=== PATIENT | male | born 2000 | race Two or more races ===

== ENCOUNTER 2024-12-01 21:46 | Emergency (ER) | payer MEDICAID, SELFPAY ==
[2024-12-01 22:00] VITALS: BP 134/88; PULSE 96; RESP 20; TEMP 36.9; O2SAT 97
--- NOTE | 2024-12-01 22:13 | PD.EDRME ---
Rapid Medical Screening Exam RME Arrival date/time: 12/01/24 21:46 24-year-old male reports with the statement I want to . He also admits to wanting to harm others Chief Complaint: Wound/Laceration Time Seen by Provider: 12/01/24 22:08 Vital signs: Vital Signs Temperature 98.4 F 12/01/24 22:00 Pulse Rate 96 12/01/24 22:00 Respiratory Rate 20 12/01/24 22:00 Blood Pressure 134/88 H 12/01/24 22:00 Pulse Oximetry (%) 97 12/01/24 22:00 Oxygen Delivery Method Room Air 12/01/24 22:00
--- NOTE | 2024-12-01 22:30 | PC.NURSE ---
Pt placed in ED rm 18, with ligatures removed. Pt was checked by private security guard, Ligia. Pt placed in hospital gown and clothes placed in locker #6. Pt was cooperative and followed commands appropriately. U/A obtained and will send to lab. Pt provided with blanket and pillow. Vital signs obtained. 1:1 sitter present.
[2024-12-01 22:45] VITALS: BP 125/80; PULSE 110; RESP 20; TEMP 36.8; O2SAT 97
[2024-12-01 23:02] LABS: Alcohol, Blood Medical < 3.0 mg/dL (0-10.0)
--- NOTE | 2024-12-01 23:24 | EDNOTE_ITS ---
ED Psych RME/HPI General Chief Complaint: Wound/Laceration Stated Complaint: LACERATIONS TO ARMS Time Seen by Provider: 12/01/24 22:08 Arrival date/time: 12/01/24 21:46 RME / HPI RME / HPI Narrative: 12/01/24 21:46 24-year-old male reports with the statement I want to . He also admits to wanting to harm others -------- Dr. Quiles?s Main ED Evaluation: 24yo male presents to the ED for SI. Patient endorsed to nursing staff on arrival I want to . He does have a history of self harm. Also states he wants to inflict harm to others. Denies any hallucinations. No known allergies. Related Data Allergies Allergy/AdvReac Type Severity Reaction Status Date / Time No Known Allergies Allergy Verified 12/01/24 21:48 Review of Systems Review of Systems Systems Reviewed: All systems reviewed, normal except as documented Past Medical History Social History SMOKING STATUS: Never smoker ED Exam Narrative Physical exam: GENERAL APPEARANCE: alert and oriented x 4, well-developed, well-nourished, no acute distress VITALS: All vitals were reviewed and the pulse ox is 97% on room air, which is normal according to my interpretation. HEENT: normocephalic, atraumatic NECK: supple LUNGS: no respiratory distress, normal effort HEART: good peripheral perfusion ABDOMEN: non distended EXTREMITIES: atraumatic NEUROLOGIC: awake; alert and oriented x4; cranial nerves II-XII grossly intact PSYCHIATRIC: appropriate mood and affect SKIN: warm, dry, normal color; no rashes Course Course Course Narrative: 2343: Patient is medically clear for crisis evaluation. The patient was placed in ED observation care at 12/01/24 at 2343 hours. The patient was placed in ED observation care because of pending psychiatric evaluation. The patients past medical history, social history, and family history were reviewed. The plan of care will include serial examinations. 0600: Care signed out to Dr. Nicole (emergency physician). Past medical, surgical, social and family history reviewed. Vitals and home medications reviewed. Results and treatment plan discussed. They will assume the care of the patient at this time and will follow the patient, pending crisis evaluation. At this time, observation has ended. Quality Measures none Orders Category Date Time Status Alcohol, Blood Medical Stat Lab 12/01/24 22:26 Completed Drug Screen,Urine Stat Lab 12/01/24 23:01 Completed Vital Signs Vital signs: Vital Signs Temperature 98.4 F 12/01/24 22:00 Pulse Rate 96 12/01/24 22:00 Respiratory Rate 20 12/01/24 22:00 Blood Pressure 134/88 H 12/01/24 22:00 Pulse Oximetry (%) 97 12/01/24 22:00 Oxygen Delivery Method Room Air 12/01/24 22:00 Psych MDM Narrative MDM Narrative:: Scribe Attestation: 12/01/24 - Jazz Lieberman am scribing for and in the presence of Dr. Quiles. Patient data External records reviewed:: [facility] previous records (Per chart review, patient has no previous ED visits or admissions to this facility.) Clinical information provided by:: patient Social determinants that could affect healthcare access:: mental health Patient has the following chronic illnesses:: none How is presenting disease/condition affected by chronic disease/condition?: no chronic disease Evaluation data The following diagnostics were reviewed and interpreted by me:: lab results Lab and/or radiology exams considered but not ordered:: none Interpretation Summary: Blood alcohol is negative, UDS is positive for marijuana and methamphetamines, according to my interpretation. Medications / Prescriptions Medications or Prescriptions considered but not ordered:: none Medication administrations:: none Consultations Consultation(s) initiated? (list below): No Diagnosis Psych Differential Diagnosis: suicidal ideation, depression and other (HI) Most likely diagnosis given after review of the tests above:: see below Admission Indicated Admission indicated?: not indicated Admission Request Was there a request for admission?: No Disposition Plan Disposition Plan: other (specify) (Signed out to Dr. Nicole at 0600 pending crisis evaluation.) Discharge Plan Prescriptions/Referrals Referrals: Zachariah Moreau MD [Primary Care Provider] - In 1 week Problem List Clinical Impression: Suicidal ideation Patient/Caregiver Discharge Instructions Print Language: Faroese
[2024-12-01 23:33] LABS: Amphetamine/Methamp Scrn,U Positive (Negative); Barbiturate Screen,Urine Negative (Negative); Benzodiazepines Screen,Urine Negative (Negative); Benzoylecgonine Screen, Ur Negative (Negative); Fentanyl Screen,Urine Negative (Negative); Opiate Screen,Urine Negative (Negative); THC Screen,Urine Positive (Negative)
[2024-12-02] VITALS (8 sets, daily range): BP systolic 106–150; BP diastolic 55–84; PULSE 72–94; RESP 15–20; TEMP 36.4–37.3; O2SAT 96–99
--- NOTE | 2024-12-02 | PC.NURSE ---
Pt voluntary presents to ED D/T SI pt states he was brought in by mother when she noted pt had been cutting himself in attempt to commit suicide . Pt presents with four fresh superficial lacerations to his left upper forearm and multiple scared laceration from prior self inflicted cuts. Pt states he is having suicidal thoughts with a plan. PT cooperative to treatment at this time. 1:[address]
[2024-12-02] MEDS: DIPHTH,PERTUSS(ACELL),TET VAC 0.5 ML SYR IMi (06:31)
[2024-12-02] MEDS: BACITRACIN OINT 1 GM PACKET TOP (06:31)
[2024-12-02] MEDS: cephALEXin 250 MG CAPSULE 1000 MG PO (06:35)
[2024-12-02 07:12] LABS: Basophils # (Auto) 0.1 Thou/mm3 (0.0-0.2); Basophils % (Auto) 0 % (0-2.5); Eosinophils # (Auto) 0.2 Thou/mm3 (0.0-0.5); Eosinophils % (Auto) 1 % (0-10); Hematocrit 40.6 % (41.0-53.0); Hemoglobin 14.1 g/dL (13.5-16.0); Immature Granulocytes % (Auto) 1 % (0-0); Immature Granulocytes Auto 0.11 Thou/mm3 (0.00-0.00); Lymphocytes # (Auto) 2.4 Thou/mm3 (1.0-4.8); Lymphocytes % (Auto) 15 % (10-50); Mean Corpuscular HGB Conc 34.7 g/dl (31.0-37.0); Mean Corpuscular Hemoglobin 28.4 pg (25.0-35.0); Mean Corpuscular Volume 82 fL (80-100); Monocytes # (Auto) 1.6 Thou/mm3 (0.0-0.8); Monocytes % (Auto) 10 % (0-12); Neutrophils # (Auto) 11.6 Thou/mm3 (1.8-7.7); Neutrophils % (Auto) 73 % (37-80); Nucleated Red Blood Cell % 0 /100 WBC (0); Platelet Count 226 Thou/mm3 (140-440); RDW Standard Deviation 39.5 fL (35.1-43.9); Red Blood Count 4.96 Miln/mm3 (4.50-5.90)
--- NOTE | 2024-12-02 08:00 | PC.NURSE ---
breakfast tray provided.
[2024-12-02 08:14] LABS: Acetaminophen < 2.0 mcg/mL (10.0-20.0); Alanine Aminotransferase 61 U/L (10-49); Albumin, Serum 4.4 gm/dL (3.5-5.0); Albumin/Globulin Ratio 1.6 (1.2-2.2); Alkaline Phosphatase 77 U/L (46-116); Anion Gap 10 (7-16); Aspartate Amino Transferase 72 U/L (0-34); BUN/Creatinine Ratio 11 Ratio (12-20); Bilirubin,Total 1.3 mg/dL (0.3-1.2); Blood Urea Nitrogen 12 mg/dL (9-23); Calcium 9.1 mg/dL (8.3-10.6); Calcium (Corrected) 9.1 mg/dL (8.5-10.1); Carbon Dioxide 27.1 mMol/L (20.0-31.0); Chloride 99 mMol/L (98-107); Creatinine (Component) 1.1 mg/dL (0.6-1.3); Globulin 2.7 gm/dL (2.3-3.5); Glucose 98 mg/dL (74-106); Magnesium 2.4 mg/dL (1.6-2.6); Osmolality,Calculated 271 (275-295); Potassium 3.7 mMol/L (3.4-5.1); Salicylate < 3.0 mg/dL; Sodium 136 mMol/L (136-145); Thyroid Stimulating Hormone 0.64 uIU/mL (0.55-4.78); Total Protein 7.1 gm/dL (5.7-8.2); eGFR > 60 See Note
--- NOTE | 2024-12-02 12:00 | PC.NURSE ---
LUNCH TRAY PROVIDED.
--- NOTE | 2024-12-02 16:33 | PD.EDADDENDU ---
Emergency Room Addendum Addendum Narrative: I took over the care from Dr. BROWN at 6 AM on 12/02/2024, see her notes for complete H&P and ED course. Patient asked me to evaluate his swollen feet for the past few days with erythema. On exam, both feet are erythematous with edema and calor and soft tissue tenderness. I reviewed all diagnostic test results. At this point, diagnoses include substance abuse, multiple skin abrasions, resolved SI due to drugs, cellulitis of both feet. Treatment here included wound care with topical ABX, Tdap, and Keflex. His mental status returned to baseline and he remained stable. After evaluation, our ED long term acute care registered nurse arranged inpatient addiction treatment at [facility]. Based on my best medical judgment, made decision no further evaluation or treatment indicated at this time. Patient understands and agrees to the discharge instructions customized and printed, see below. Discharge Instructions from Dr. Nicole: 1. After evaluation by our ED long term acute care registered nurse, you are being discharged to [facility] (inpatient addiction treatment center). 2. You don't meet the criteria for emergency half-way in psychiatric unit against your will.? Because you currently have no thoughts of hurting yourself or others.? And there are no signs of psychosis (loss of touch with reality) which can potentially be harmful to you and others. 3. Wound care of your multiple skin abrasions as instructed in the attached handout. 4. Take Keflex as prescribed for your bilateral foot cellulitis. To help the healing process, elevate your feet/ankles above your waist level when sitting or resting or sleeping. 5. See a private doctor on 12/04/2024 for recheck and further care, to make sure you are healing without any complications. 6. Seek immediate medical care (you can call 911 any time) with fever, spreading redness from a wound, thoughts of hurting yourself or with any concerns. Ko Nicole MD
--- NOTE | 2024-12-02 16:50 | PC.NURSE ---
pt cleared by social security specialist for d/c.
--- NOTE | 2024-12-02 17:03 | PC.SS ---
Addendum entered by IMANI Henriquez 12/02/24 17:08: JAISON SHAH 1730. Updated bed side nurse and Angel at the [facility]. [phone]. Original Note: ASW met with the patient [id number] for mental health evaluation. ASW introduced self, role and reason for contact. The patient was informed of the limits of confidentiality. The patient verbalized understanding. The patient appeared alert and oriented to self, place and situation. The patient presented with an organized thought process and was able to engage in the assessment. No signs of delusion or paranoia observed. Patient was asked about engaging in eye contact during the assessment. The patient reports he was brought into the ED yesterday as he needed to be medically cleared and assessed for SI before enrolling into [facility], for substance use. 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 The patient denies attempting to end his life. The patient informs he did this ?to feel better?. The patient was assessed for SI and HI. The patient denied both. The patient also denied audio and visual hallucinations. The patient denies previous suicidal attempts of psychiatric placements. The patient denies having a mental health diagnosis or taking mental health medication. The patient reports to ?crystal meth and marijuana? use. The patient reports he uses meth every other day and THC on occasion. The patient also reports alcohol use on occasion. The patient informs he is not connected to substance use services as of yet however is to connect to the [facility] for 90-day in patient program. The patient reports his mother, Lorraine Corbin to be his support network and emergency contact. Patient reports living at [id number] [place] [address] at home living with mother and siblings. The patient reports being independent with ADL?s. The patient reports to receiving SNAP and not currently employed. The patient is willing to engage in safety plan if needed and would like to discharge to [facility] for substance use services. Patient provided verbal consent to contact his mother Lorraine and [facility] staff for collateral information. Collateral contact: ASW spoke with patient?s mother Lorraine Corbin who reported the following. Patient brought in to the ED for medical clearance. Mother reports the patient has substance use issues (meth). Mother informs the patient does not have a history of mental health diagnosis. Mother denies suicide attempts on behalf of the patient. Mother informs the patient engages in ?cutting? when under the influence of meth use. Mother reports patient to connect with [facility] inpatient program this week as he has authorization. Mother informs patient is aligned with Probation and is to follow with outpatient substance use services. Mother is agreeable to be a part of patient?s support network. ASW also spoke with Alex, at the [facility]. Alex informs patient was sent for medical clearance and assessment for self-harm. No history of mental health or suicidal ideations to Alex?s knowledge. Only medication that Alex reports patient to take is muscle relaxer medication. Alex reports the patient is eligible to discharge to their program today if able to however would need transportation arranged. Alex reports the program is a 90-day inpatient program. Alex indicated they can assist with patient following outpatient mental health services. Alex provided [facility] address to be: [address] [place], [place] [id number]. . After clinical consultation with Care Special Machine Stitcher, Aleida Suárez LCSW, decision was made that patient does not meet criteria for a [address] and could be discharged to [facility] for inpatient 90-day program. NEHEMIAS was informed patient will need to follow up with outpatient mental health services and they were agreeable in assisting the patient. PAC referral to be faxed for follow up. Angel at [facility] is aware and agreeable. [facility] transportation arranged for the patient to d/c to [facility]. Angel at [facility] was contacted and made aware to expect the patient this evening. Patient?s mother Lorraine also informed.
== END 2024-12-02 16:56 | disposition home or self-care (01) ==
PROVIDERS: Physician Assistant; Emergency Provider Emergency Medicine; PCP Family Medicine
DX: R45.851 Suicidal ideations (principal); Z91.52 Personal history of nonsuicidal self-harm; Z23 Encounter for immunization; L03.116 Cellulitis of left lower limb; L03.115 Cellulitis of right lower limb
CPT/HCPCS: 36415; 80053; 80307; 80320; 80329; 83735; 84443; 85025; 90471; 90715; 96127; 99284; A9270; G0480

== ENCOUNTER 2024-12-05 18:30 | Emergency (ER) | payer MEDICAID, SELFPAY ==
[2024-12-05 19:07] VITALS: BP 142/85; PULSE 126; RESP 18; TEMP 36.9; O2SAT 97; BMI 28.1
[2024-12-05] MEDS: DOXYCYCLINE 100 MG TABLET PO (20:10)
[2024-12-05 20:14] VITALS: BP 136/89; PULSE 89; RESP 16; TEMP 36.7; O2SAT 96
--- NOTE | 2024-12-05 21:32 | EDNOTE_ITS ---
ED Skin Abcess FB-RME/HPI General Chief complaint: Ankle/Foot Injury Stated complaint: Right foot bruising, pain X 1 week Time Seen by Provider: 12/05/24 19:17 Arrival date/time: 12/05/24 18:30 24M with history of drug/psych presents to ED with 1 week of bilateral foot (R>L) pain w/o fall/trauma. Patient was here several days ago for this for psych clearance and was prescribed Keflex for cellulitis. 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 Patient states swelling as gone down, but pain is still present. Limitations: no limitations Related Data Previous Rx's ?Medication ?Instructions ?Recorded cephalexin 500 mg capsule 500 mg PO QID 10 days #40 ca ps 12/02/24 doxycycline hyclate 100 mg tablet 100 mg PO BID 7 days #14 tabs 12/05/24 Allergies Allergy/AdvReac Type Severity Reaction Status Date / Time No Known Allergies Allergy Verified 12/05/24 18:36 Review of Systems Review of Systems Systems Reviewed: All systems reviewed, normal except as documented Constitutional Constitutional: Reports system reviewed and no additional complaints, except as documented, Denies fever(s) and Denies headache(s) ENT Ears, Nose, Mouth, and Throat: Denies disequilibrium and Denies headache(s) Cardiovascular Cardiovascular: Reports system reviewed and no additional complaints, except as documented, Denies chest pain and Denies dyspnea Respiratory Respiratory: Reports system reviewed and no additional complaints, except as documented, Denies cough and Denies dyspnea Gastrointestinal Gastrointestinal: Reports system reviewed and no additional complaints, except as documented, Denies abdominal pain, Denies nausea and Denies vomiting Integumentary/Breasts Skin/Breast: Reports as per HPI and Reports skin pain Neurologic Neurologic: Reports system reviewed and no additional complaints, except as documented, Denies confusion, Denies disequilibrium and Denies headache(s) Psychiatric Psychiatric: Denies confusion Past Medical History Past Medical History CARDIAC: Negative Congestive Heart Failure RESPIRATORY: Negative Chronic Obstructive Pulmonary Disease (COPD) GENITOURINARY: Negative Renal Disease ENDOCRINE: Negative Diabetes Mellitus Type 1 or Diabetes Mellitus Type 2 Social History SMOKING STATUS: Current every day smoker ED Exam General Limitations: Present no limitations General appearance: Present alert and in no apparent distress Head Head exam: Present atraumatic Eye Eye exam: Present normal appearance, PERRL and EOMI ENT ENT exam: Present normal exam, normal oropharynx and mucous membranes moist Neck Neck exam: Present normal inspection, full ROM and trachea midline Chest Chest inspection: Present normal inspection and symmetric chest wall rise Respiratory Respiratory exam: Present normal lung sounds bilaterally Cardiovascular Cardiovascular exam: Present regular rate, normal rhythm and normal heart sounds Abdominal Exam Abdominal exam: Present soft and normal bowel sounds Extremities Exam Extremities exam: Present full ROM Expanded Lower Extremity Exam Foot/toe exam: Present full ROM, tenderness (R>L) and erythema Back Exam Back exam: Present normal inspection and full ROM Neurological Exam Neurological exam: Present alert, oriented X3 and CN II-XII intact Psychiatric Psychiatric exam: Present normal affect and normal mood Skin Skin exam: Present warm, dry, intact and normal color Course Quality Measures none Orders Category Date Time Status Doxycycline [Vibramycin] Med 12/05/24 19:17 Discontinued 100 mg PO X1 ONE Vital Signs Vital signs: Vital Signs Temperature 98.5 F 12/05/24 19:07 Pulse Rate 126 H 12/05/24 19:07 Respiratory Rate 18 12/05/24 19:07 Blood Pressure 142/85 H 12/05/24 19:07 Pulse Oximetry (%) 97 12/05/24 19:07 Oxygen Delivery Method Room Air 12/05/24 19:07 O2 at 97% on RA and WNLs Skin / Abscess / Foreign Body MDM Narrative MDM Narrative:: 24M with history of drug/psych presents to ED with 1 week of bilateral foot (R>L) pain w/o fall/trauma. Patient was here several days ago for this for psych clearance and was prescribed Keflex for cellulitis. 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 Patient states swelling as gone down, but pain is still present. Physical exam reveals bilateral foot redness and mild swelling (R>L). Gait normal. ROM intact. Patient is afebrile, calm, and alert. Given drug history will change Keflex to doxy to cover for MRSA. Patient data External records reviewed:: [facility] previous records Clinical information provided by:: patient Social determinants that could affect healthcare access:: substance use Patient has the following chronic illnesses:: psych/drug How is presenting disease/condition affected by chronic disease/condition?: exacerbated by Evaluation data The following diagnostics were reviewed and interpreted by me:: other (specify) (none) Lab and/or radiology exams considered but not ordered:: not ordered Interpretation Summary: n/a Medications / Prescriptions Medications or Prescriptions considered but not ordered:: ordered Medication administrations:: Medication Administration History Discontinued Medications Doxycycline Hyclate (Doxycycline 100 Mg Tablet) 100 mg PO X1 ONE Stop: 12/05/24 19:18 Last Admin: 12/05/24 20:10 Dose: 100 mg Documented By: ENEDINA above Consultations Consultation(s) initiated? (list below): No Diagnosis Skin/Abscess Differential Diagnosis: abscess of skin or subcutaneous tissue, viral exanthem, dermatophytosis, urticaria, herpes zoster, allergic reaction to drug, cellulitis, eczema, insect bites, impetigo and contact dermatitis Most likely diagnosis given after review of the tests above:: cellulitis Admission Indicated Admission indicated?: not indicated Admission Request Was there a request for admission?: No Disposition Plan Disposition Plan: Discharge Discharge Attestation Discharge Attestation: The patient and all family members were given an opportunity to ask questions and understood the discharge instructions. Discharge instructions specifically effects, indications for sooner follow up or return to the emergency department, and the expected course of current diagnosis. Patient condition: Stable Discharge Plan Plan Patient Disposition: HOME (Self Care) Disposition Comment: Stable Prescriptions/Referrals Prescriptions/Med Rec: New doxycycline hyclate 100 mg tablet 100 mg PO BID 7 Days Qty: 14 0RF No Action cephalexin 500 mg capsule 500 mg PO QID 10 Days Qty: 40 0RF Problem List Clinical Impression: Cellulitis of both feet Patient/Caregiver Discharge Instructions Education Materials: ED Cellulitis Additional Instructions: Please follow-up with PCP within 24-48 hours and return immediately if symptoms worsen. Take doxycycline, not cephalexin. Print Language: Sierra Leonean Stand Alone Forms: Patient Portal Info Letter STONEY/MARIE Supervising Physician STONEY/MARIE Supervising Physician: Dr. Bhandari
== END 2024-12-05 20:15 | disposition home or self-care (01) ==
PROVIDERS: Emergency Provider Emergency Medicine
DX: L03.115 Cellulitis of right lower limb (principal); L03.116 Cellulitis of left lower limb; F17.210 Nicotine dependence, cigarettes, uncomplicated
CPT/HCPCS: 99282; A9270